=== PATIENT | female | born 1970 | race Caucasian/White ===

== ENCOUNTER 2025-02-04 10:28 | Emergency (ER) | payer BC, SELFPAY ==
[2025-02-04 10:31] VITALS: BP 129/92
[2025-02-04] MEDS: NSS 1000 IV (11:34)
[2025-02-04] MEDS: TORADOL 15 MG IV (11:35)
[2025-02-04] MEDS: BENADRYL 50 MG IV (11:36)
[2025-02-04 11:37] LABS: % Basophils 0.5 % (0-2); % Eosinophils 2.6 % (0-6); % Immature Granulocytes 0.3 % (0-0.5); % Lymphocytes 30.5 % (20.5-51.1); % Monocytes 6.3 % (1.7-9.3); % Neutrophils 59.8 % (42.2-75.2); Absolute Basophils 0.1 10^3/uL (0-0.2); Absolute Eosinophils 0.3 10^3/uL (0-0.7); Absolute Monocytes 0.6 10^3/uL (0.1-0.6); Absolute Neutrophils 5.9 10^3/uL (1.4-6.5); Hematocrit 44.7 % (37.0-47.0); Hemoglobin 14.5 g/dL (12.0-16.0); Mean Corp Hgb Conc. 32.4 g/dL (33.0-37.0); Mean Corpuscular Hgb 26.9 pg (27.0-31.0); Mean Corpuscular Volume 82.9 fL (81.0-99.0); Mean Platelet Volume 9.3 fL (7.4-10.4); Nucleated Red Blood Cells % 0 %; Platelet Count 384 10^3/uL (130-400); Red Blood Cell Count 5.39 10^6/uL (4.20-5.40); Red Cell Dist. Width 14.6 % (11.5-14.5); White Blood Cell Count 9.8 10^3/uL (4.8-10.8)
[2025-02-04] MEDS: DECADRON 10 MG IV (11:39)
[2025-02-04] MEDS: REGLAN 10 MG IV (11:41)
[2025-02-04 11:53] LABS: Blood Urea Nitrogen 30 mg/dl (7-17); Calcium 10.1 mg/dl (8.4-10.2); Carbon Dioxide 34 mmol/L (22-30); Chloride 98 mmol/L (98-107); Glucose 143 mg/dl (70-99); Sodium 141 mmol/L (135-145); eGFR 54.13
--- NOTE | 2025-02-04 12:06 | ED.GENMED ---
History of Present Illness
General
Chief Complaint: Headache
Source: patient
Exam Limitations: none
Time Seen by Provider: 02/04/25 11:00
Nursing documentation reviewed up to this point in time: agreed with
History of Present Illness
History of Present Illness:
54-year-old female past with history of fibromyalgia, previous PE factor V Leiden presenting to the emergency department today with concerns of a migraine over the past week. Initially felt similar to previous migraines but has been ongoing despite
typical medications at home. Ongoing for the last week. Described as a throbbing diffuse headache. Denies numbness weakness changes in vision. Able to walk well. No neck pain no fevers.
Past History
Past History
ED Past Medical History: Other (Migraine HAs, fibromyalgia, frequent UTIs, factor V Leiden deficiency)
ED Past Surgical History: Cholecystectomy
Social History
Tobacco: Non-smoker
Alcohol: None
Drug: None
Personal:
Living: with family
Employment: Employed
Family History
Family History: Other (No significant)
Review of Systems
Review of Systems
Allergies reviewed?: Yes
All Other Systems: ROS reviewed and negative except as documented in HPI and ROS
Phy Exam
Physical Exam
Physical Exam:
GENERAL: Alert , in no apparent distress
EYE: pupils equal and reactive
NECK: Supple, no significant adenopathy.
ENT: o/p clr, mmm.
CARDIAC: Regular rate and rhythm .
LUNGS: Clear breath sounds bilaterally, no acute respiratory distress, no wheezes/rales/rhonchi
ABDOMEN: Soft, without focal tenderness, no r/g, no cvat
NEUROLOGICAL: Alert and oriented, no focal neuro deficits
SKIN: Warm and dry, skin intact.
MUSCULOSKELETAL: No edema, well perfused.
PSYCH: Normal and appropriate interaction.
Course
Orders/Labs/Results
Orders:
Orders
02/04/25 11:13
CT Head W/o Iv Contrast Urgent
Comment:
Reason For Exam: progressive 1 week KNAPP
0.9% Sodium Chloride 1000 ml [Nss] 1,000 ml IV BOLUS
Dexamethasone Sod Phosphate [Decadron] 10 mg IV NOW STA
Diphenhydramine [Benadryl] 50 mg IV NOW STA
Ketorolac [Toradol] 15 mg IV NOW STA
Metoclopramide [Reglan] 10 mg IV NOW STA
02/04/25 11:29
Basic Metabolic Panel Urgent
Complete Blood Count/With Diff Urgent
Abnormal Lab Results
02/04/25
11:29
MCH 26.9 L pg
(27.0-31.0)
MCHC 32.4 L g/dL
(33.0-37.0)
RDW 14.6 H %
(11.5-14.5)
Carbon Dioxide 34 H mmol/L
(22-30)
BUN 30 H mg/dl
(7-17)
Creatinine 1.2 H mg/dL
(0.6-1.0)
Glucose 143 H mg/dl
(70-99)
02/04/25 11:29
02/04/25 11:29
Vital Signs
Initial and Last Documented VS:
Initial Vital Signs
Temp Pulse Resp BP Pulse Ox
98.6 F 87 16 129/92 97
02/04/25 10:31 02/04/25 10:31 02/04/25 10:31 02/04/25 10:31 02/04/25 10:31
Last Documented Vital Signs
Temp Pulse Resp BP Pulse Ox
98.6 F 87 20 129/92 97
02/04/25 10:31 02/04/25 10:31 02/04/25 12:35 02/04/25 10:31 02/04/25 10:31
MDM/Problems Addressed
MDM/Problems Addressed:
54-year-old female presenting to the emergency department today with concerns of headache over the past week has had some nausea and vomiting. On arrival vital signs are normal patient no distress does feel similar to previous migraines but has
been ongoing for a week which is atypical. Neurologic examination normal here patient no obvious distress. Labs showing elevated creatinine level and BUN which is consistent with her decreased oral intake. Was given a liter of fluids. Head CT
without emergent findings. Patient reassessed with complete resolution of symptoms. Patient well-appearing no distress stable for outpatient management. No evidence of life-threatening cause of headache at this time.
*Critical Care Note
Total Time (30-74mins, 75-104mins- exclusive of procedures): Not Applicable
ED Attending Note
-
Portions of this chart may have been created with voice recognition software.� Occasional wrong word or��sound alike� substitutions may have occurred due to the inherent limitations of voice recognition software.
Discharge Plan
Departure
Patient Disposition: Home (Routine Discharge)
Date of Disposition: 02/04/25
Time of Disposition: 13:23
Patient with high blood pressure during this ER visit?: No
Condition: Good
Covid-19: Not Applicable
Discharge Problem:
Migraine
Instructions: Migraines (DC)
Prescriptions:
No Action
furosemide 40 mg Tablet
40 mg PO DAILY
omeprazole 40 mg Capsule,Delayed Release(Dr/Ec)
40 mg PO DAILY
glimepiride 1 mg Tablet
1 mg PO DAILY
modafinil 200 mg Tablet
200 mg PO DAILY
metformin 1,000 mg Tablet
1,000 mg PO BID
rosuvastatin 20 mg Tablet
20 mg PO DAILY
cholecalciferol (vitamin D3) 125 mcg (5,000 unit) Tablet
125 mcg PO DAILY
Eliquis 2.5 mg Tablet
2.5 mg PO BID
hydroxyzine HCl 50 mg Tablet
50 mg PO Q8H
escitalopram oxalate 20 mg Tablet
20 mg PO HS
bupropion HCl 300 mg Tablet Extended Release 24 Hr
300 mg PO DAILY
quetiapine 150 mg Tablet
150 mg PO HS
cranberry extract [Ellura] 200 mg Capsule
36 mg PO DAILY
cyclobenzaprine 10 mg Tablet
10 mg PO HS
ondansetron HCl 4 mg Tablet
4 mg PO TID
prochlorperazine maleate [Compazine] 10 mg Tablet
10 mg PO Q8H PRN (Reason: nausea)
doxepin 10 mg Capsule
20 mg PO HS
zolmitriptan [Zomig] 5 mg Tablet
5 mg PO BIDPRN PRN (Reason: migraines)
zblodbsroa-zpikbjgwhjfis-cvwi 50-325-40 mg Tablet
2 tab PO Q6H PRN (Reason: migraines)
albuterol sulfate 90 mcg/actuation Hfa Aerosol Inhaler
2 puff INHALATION R Q4HPRN PRN (Reason: sob)
zolmitriptan [Zomig] 5 mg [place],Non-Aerosol
1 spray INTRANASAL DAILYPRN PRN (Reason: migraines)
biotin 10,000 mcg Tablet,Disintegrating
10,000 mcg PO DAILY
cephalexin 500 mg tablet
500 mg PO Q6H Qty: 46 0RF
oxycodone-acetaminophen 10-325 mg tablet
1 tab PO Q6H PRN (Reason: migraines) Qty: 20 0RF
Referrals:
Julius Sutton MD [Family Provider] -
Activity Restrictions/Additional Instructions:
You came to the emergency department today with concerns of headache. Here you had a reassuring assessment. This is likely from a migraine. Please have close with your neurologist. Return for any worsening, new or concerning symptoms.
Interventions
Interventions:
*Risk Screen - Suicide Last Done: 02/04/25 12:35
*General Assessment Last Done: 02/04/25 12:35
*Neglect/Abuse Screening Last Done: 02/04/25 12:35
*ED- Fall Risk Assessment Last Done: 02/04/25 12:35
*ED COVID-19 Vaccine History Last Done: 02/04/25 12:36
ED- Neurological Assessment Last Done: 02/04/25 12:35
Discharge Date and Time
Print Language: CYMRO
[2025-02-04 13:32] VITALS: BP 131/70
== END 2025-02-04 13:33 | disposition home or self-care (01) ==
LOC: EMR 10:28
PROVIDERS: Physician Assistant; EMERGENCY PHYSICIAN Emergency Medicine; FAMILY PHYSICIAN Family Medicine
DX: G43.909 Migraine, unspecified, not intractable, without status migrainosus (principal); R11.10 Vomiting, unspecified; M79.7 Fibromyalgia; D68.51 Activated protein C resistance; M19.90 Unspecified osteoarthritis, unspecified site; F41.9 Anxiety disorder, unspecified; R73.03 Prediabetes; Z90.49 Acquired absence of other specified parts of digestive tract; Z87.440 Personal history of urinary (tract) infections; Z86.711 Personal history of pulmonary embolism; Z79.01 Long term (current) use of anticoagulants; Z88.5 Allergy status to narcotic agent; Z91.013 Allergy to seafood; Z88.8 Allergy status to other drugs, medicaments and biological substances; Z91.018 Allergy to other foods
CPT/HCPCS: 99284; 96374; 96375 ×3; 96361; 70450; 80048; 85025

== ENCOUNTER 2025-02-13 11:47 | Emergency (ER) | payer BC, SELFPAY ==
[2025-02-13] VITALS (7 sets, daily range): BP systolic 108–127; BP diastolic 71–83; BMI 27.3
[2025-02-13 12:08] LABS: % Basophils 0.4 % (0-2); % Eosinophils 2.3 % (0-6); % Immature Granulocytes 0.2 % (0-0.5); % Lymphocytes 29.8 % (20.5-51.1); % Monocytes 8.5 % (1.7-9.3); % Neutrophils 58.8 % (42.2-75.2); Absolute Eosinophils 0.3 10^3/uL (0-0.7); Absolute Lymphocytes 3.2 10^3/uL (1.2-3.4); Absolute Monocytes 0.9 10^3/uL (0.1-0.6); Absolute Neutrophils 6.3 10^3/uL (1.4-6.5); Hematocrit 44.3 % (37.0-47.0); Hemoglobin 14.5 g/dL (12.0-16.0); Mean Corp Hgb Conc. 32.7 g/dL (33.0-37.0); Mean Corpuscular Volume 82.3 fL (81.0-99.0); Mean Platelet Volume 9.6 fL (7.4-10.4); Nucleated Red Blood Cells % 0 %; Platelet Count 401 10^3/uL (130-400); Red Blood Cell Count 5.38 10^6/uL (4.20-5.40); Red Cell Dist. Width 14.2 % (11.5-14.5); White Blood Cell Count 10.8 10^3/uL (4.8-10.8)
[2025-02-13 12:37] LABS: ALT (SGPT) 26 U/L (0-35); AST (SGOT) 21 U/L (14-36); Albumin 4.9 g/dl (3.5-5.0); Alkaline Phosphatase 108 U/L (38-126); Blood Urea Nitrogen 27 mg/dl (7-17); Calcium 9.7 mg/dl (8.4-10.2); Carbon Dioxide 26 mmol/L (22-30); Chloride 98 mmol/L (98-107); Glucose 114 mg/dl (70-99); Lipase 187 U/L (23-300); Potassium 3.2 mmol/L (3.5-5.1); Sodium 143 mmol/L (135-145); Total Bilirubin 0.4 mg/dl (0.2-1.3); Total Protein 7.6 g/dl (6.3-8.2); eGFR 49.17
--- NOTE | 2025-02-13 15:52 | ED.GENMED ---
History of Present Illness
<Kenrick Avilez DO - Last Filed: 02/13/25 15:58>
General
Chief Complaint: Visual Problem
Source: patient
Exam Limitations: none
Time Seen by Provider: 02/13/25 13:06
History of Present Illness
History of Present Illness:
54-year-old female who presents after she developed vision changes starting yesterday. Patient states she has had a migraine for some time but got treated last week and felt better from a migraine perspective. However, she has been vomiting. Has
been on Mounjaro for about 3 weeks. Patient states that she sees essentially double vision when both of her eyes are open. She denies headache. No neck pain. Patient denies fevers.
Past History
<Kenrick Avilez DO - Last Filed: 02/13/25 15:58>
Past History
ED Past Medical History: Other (Migraine HAs, fibromyalgia, frequent UTIs, factor V Leiden deficiency)
ED Past Surgical History: Cholecystectomy
Social History
Tobacco: Non-smoker
Alcohol: None
Drug: None
Personal:
Living: with family
Employment: Employed
Family History
Family History: Other (No significant)
Phy Exam
<Kenrick Avilez DO - Last Filed: 02/13/25 15:58>
Physical Exam
Physical Exam:
CONSTITUTIONAL Patient alert and oriented to person, place and time. Well-appearing. Vital signs reviewed.
HEAD atraumatic, normocephalic.
EYES eyelids normal to inspection, Conjunctiva normal, Sclera normal.
NECK normal range of motion, Trachea midline, no jugular venous distention.
RESPIRATORY CHEST No respiratory distress noted, Chest expansion equal, Bilateral breath sounds clear.
CARDIOVASCULAR regular rate and rhythm, Heart sounds normal.
ABDOMEN abdomen nontender, Bowel sounds normal. No distention.
BACK normal inspection, no obvious deformities
UPPER EXTREMITY range of motion normal, Motor strength normal, no cyanosis, no edema.
LOWER EXTREMITY range of motion normal, Motor strength normal, no cyanosis, no edema.
NEURO Speech normal, No focal motor deficits, [place] coma scale 15, Memory normal, Cranial Nerves intact to screening exam. No pronator drift. Normal bzaqfd-kc-ffos bilaterally. There is a disconjugate gaze noted. Unclear exactly the
dysfunction but appears to have difficulty in new superior motion of the right eye.
SKIN skin warm, dry, and normal in color.
Course
<Kenrick Avilez, DO - Last Filed: 02/13/25 15:58>
Orders/Labs/Results
Orders:
Orders
02/13/25 12:01
Complete Blood Count/With Diff Urgent
Comprehensive Metabolic Panel Urgent
Lipase Urgent
02/13/25 13:54
CT Head & Neck Angio W/wo IV Urgent
Comment:
Reason For Exam: vomiting, now disconjugate gaze
02/13/25 17:48
Prednisone [Deltasone] 50 mg PO NOW STA
Abnormal Lab Results
02/13/25
12:01
MCHC 32.7 L g/dL
(33.0-37.0)
Plt Count 401 H 10^3/uL
(130-400)
Absolute Monos (auto) 0.9 H 10^3/uL
(0.1-0.6)
Potassium 3.2 L mmol/L
(3.5-5.1)
BUN 27 H mg/dl
(7-17)
Creatinine 1.3 H mg/dL
(0.6-1.0)
Glucose 114 H mg/dl
(70-99)
02/13/25 12:01
02/13/25 12:01
Vital Signs
Initial and Last Documented VS:
Initial Vital Signs
Temp Pulse BP Pulse Ox
98.4 F 108 108/83 97
02/13/25 11:49 02/13/25 11:49 02/13/25 11:49 02/13/25 11:49
Last Documented Vital Signs
Temp Pulse BP Pulse Ox
97.9 F 108 114/71 98
02/13/25 17:20 02/13/25 11:49 02/13/25 17:20 02/13/25 17:20
<Shyam Max DO - Last Filed: 02/13/25 17:49>
Orders/Labs/Results
Orders:
Orders
02/13/25 12:01
Complete Blood Count/With Diff Urgent
Comprehensive Metabolic Panel Urgent
Lipase Urgent
02/13/25 13:54
CT Head & Neck Angio W/wo IV Urgent
Comment:
Reason For Exam: vomiting, now disconjugate gaze
02/13/25 17:48
Prednisone [Deltasone] 50 mg PO NOW STA
Abnormal Lab Results
02/13/25
12:01
MCHC 32.7 L g/dL
(33.0-37.0)
Plt Count 401 H 10^3/uL
(130-400)
Absolute Monos (auto) 0.9 H 10^3/uL
(0.1-0.6)
Potassium 3.2 L mmol/L
(3.5-5.1)
BUN 27 H mg/dl
(7-17)
Creatinine 1.3 H mg/dL
(0.6-1.0)
Glucose 114 H mg/dl
(70-99)
02/13/25 12:01
02/13/25 12:01
Vital Signs
Initial and Last Documented VS:
Initial Vital Signs
Temp Pulse BP Pulse Ox
98.4 F 108 108/83 97
02/13/25 11:49 02/13/25 11:49 02/13/25 11:49 02/13/25 11:49
Last Documented Vital Signs
Temp Pulse BP Pulse Ox
97.9 F 108 114/71 98
02/13/25 17:20 02/13/25 11:49 02/13/25 17:20 02/13/25 17:20
<Kenrick Avilez DO - Last Filed: 02/13/25 15:58>
MDM/Problems Addressed
Differential Diagnosis Includes:
Subarachnoid hemorrhage, aneurysm, CVA, hyperglycemia, electrolyte disturbance, vascular dissection
MDM/Problems Addressed:
Disconjugate gaze
<Kenrick Avilez DO - Last Filed: 02/13/25 15:58>
*Radiology
Radiology exam reviewed: preliminary read by ED provider (No obvious bleeding)
*Pulse Oximetry
Patient hypoxic: no
*Critical Care Note
Total Time (30-74mins, 75-104mins- exclusive of procedures): Not Applicable
Data Reviewed
Source: patient
<Kenrick Avilez DO - Last Filed: 02/13/25 15:58>
Patient Management
Discussion with other providers: Skin Piler (Case discussed with neurology Dr. Abreu who will evaluate the patient)
Escalation/DeEscalation of care consider admission/obs:
Does seem to have a disconjugate gaze. Neurology to evaluate. CT shows no obvious hemorrhage and radiology reads her imaging essentially negative. Dispo pending neurology evaluation
<Shyam Max DO - Last Filed: 02/13/25 17:49>
Update Note
Update Note:
Signout pending neurology evaluation and reviewed with neurology suspect 6th nerve palsy diabetic versus viral recommend discharging on prednisone 50 mg a day for 5 days
ED Attending Note
<Kenrick Avilez DO - Last Filed: 02/13/25 15:58>
-
Portions of this chart may have been created with voice recognition software.� Occasional wrong word or��sound alike� substitutions may have occurred due to the inherent limitations of voice recognition software.
Discharge Plan
Departure
Patient Disposition: Home (Routine Discharge)
Date of Disposition: 02/13/25
Time of Disposition: 17:48
Patient with high blood pressure during this ER visit?: No
Condition: Good
Discharge Problem:
Double vision
Instructions: Double Vision (DC)
Prescriptions:
New
prednisone 50 mg tablet
50 mg PO DAILY Qty: 4 0RF
No Action
furosemide 40 mg Tablet
40 mg PO DAILY
omeprazole 40 mg Capsule,Delayed Release(Dr/Ec)
40 mg PO DAILY
glimepiride 1 mg Tablet
1 mg PO DAILY
modafinil 200 mg Tablet
200 mg PO DAILY
metformin 1,000 mg Tablet
1,000 mg PO BID
rosuvastatin 20 mg Tablet
20 mg PO DAILY
cholecalciferol (vitamin D3) 125 mcg (5,000 unit) Tablet
125 mcg PO DAILY
Eliquis 2.5 mg Tablet
2.5 mg PO BID
hydroxyzine HCl 50 mg Tablet
50 mg PO Q8H
escitalopram oxalate 20 mg Tablet
20 mg PO HS
bupropion HCl 300 mg Tablet Extended Release 24 Hr
300 mg PO DAILY
quetiapine 150 mg Tablet
150 mg PO HS
cranberry extract [Ellura] 200 mg Capsule
36 mg PO DAILY
cyclobenzaprine 10 mg Tablet
10 mg PO HS
ondansetron HCl 4 mg Tablet
4 mg PO TID
prochlorperazine maleate [Compazine] 10 mg Tablet
10 mg PO Q8H PRN (Reason: nausea)
doxepin 10 mg Capsule
20 mg PO HS
zolmitriptan [Zomig] 5 mg Tablet
5 mg PO BIDPRN PRN (Reason: migraines)
viencrykav-zfundubfmeeis-vcan 50-325-40 mg Tablet
2 tab PO Q6H PRN (Reason: migraines)
albuterol sulfate 90 mcg/actuation Hfa Aerosol Inhaler
2 puff INHALATION R Q4HPRN PRN (Reason: sob)
zolmitriptan [Zomig] 5 mg [place],Non-Aerosol
1 spray INTRANASAL DAILYPRN PRN (Reason: migraines)
biotin 10,000 mcg Tablet,Disintegrating
10,000 mcg PO DAILY
cephalexin 500 mg tablet
500 mg PO Q6H Qty: 46 0RF
oxycodone-acetaminophen 10-325 mg tablet
1 tab PO Q6H PRN (Reason: migraines) Qty: 20 0RF
Referrals:
Julius Sutton MD [Family Provider, Family Practice]
Interventions
Interventions:
*Risk Screen - Suicide Last Done: 02/13/25 11:49
*General Assessment Last Done: 02/13/25 11:49
*Neglect/Abuse Screening Last Done: 02/13/25 11:49
*ED- Fall Risk Assessment Last Done: 02/13/25 11:49
*ED COVID-19 Vaccine History Last Done: 02/13/25 11:49
ED- Neurological Assessment Last Done: 02/13/25 13:24
ED-EENT Assessment Last Done: 02/13/25 13:24
ED Swallowing Screen Last Done: 02/13/25 13:24
Discharge Date and Time
Print Language: CHINESE
--- NOTE | 2025-02-13 17:26 | CON.NEURO ---
Neuro Assessment/Plan
Assessment
isolated left 6 nerve palsy
careful exam shows no long tract signs to suggest stroke
no need for MRI
causes diabetic or viral; rx prednisone 50 x5 days, 5 days of high sugars won't cause lasting damage may help if viral
CTA showing mild left carotid plaque, continue rosuvastatin, incidental thyroid nodules outpatient ultrasound
above discussed with patient
Consultation
Order
Date of Consultation: 02/13/25
Requesting Provider: Kenrick Avilez
Reason for Consult: double vision
Subjective/Objective
Subjective Data
Date of Service: February 13, 2025
from ED notes:
54-year-old female who presents after she developed vision changes starting yesterday. Patient states she has had a migraine for some time but got treated last week and felt better from a migraine perspective. However, she has been vomiting. Has
been on Mounjaro for about 3 weeks. Patient states that she sees essentially double vision when both of her eyes are open. She denies headache. No neck pain. Patient denies fevers.
she reports the double vision is binocular, images are side by side, align with right gaze
Objective Data
Vital Signs
Temp Pulse BP Pulse Ox
36.9 C 108 108/75 99
02/13/25 11:49 02/13/25 11:49 02/13/25 16:00 02/13/25 16:01
Lab Results
02/13/25 12:01
02/13/25 12:01
Sodium 143 mmol/L (135-145) 02/13/25 12:01
Potassium 3.2 mmol/L (3.5-5.1) L 02/13/25 12:01
BUN 27 mg/dl (7-17) H 02/13/25 12:01
Glucose 114 mg/dl (70-99) H 02/13/25 12:01
Calcium 9.7 mg/dl (8.4-10.2) 02/13/25 12:01
Patient Allergies
aspartame (From Nutrasweet Aspartame) Allergy (Verified 02/13/25 11:49)
MIGRAINE TRIGGER
caffeine Allergy (Verified 02/13/25 11:49)
MIGRAINE TRIGGER
codeine Allergy (Verified 02/13/25 11:49)
VOMITING
monosodium glutamate Allergy (Verified 02/13/25 11:49)
MIGRAINE TRIGGER
Nitrate Analogues Allergy (Verified 02/13/25 11:49)
MIGRAINE TRIGGER
pollen extracts Allergy (Verified 02/13/25 11:49)
SNEEZING
shrimp Allergy (Verified 02/13/25 11:49)
Swelling
sumatriptan (From Imitrex) Allergy (Verified 02/13/25 11:49)
Vomiting
sumatriptan succinate (From Imitrex) Allergy (Verified 02/13/25 11:49)
Vomiting
Physical Exam
-
AAOx3, speech clear, language intact
VFF, EOMI, face symmetric
full strength b/l UE/LE, no pronator drift, no fixation
sensation intact touch/pin/temp, vibration symmetric side to side
DTR normal/symmetric
Medications
-
Home Medications
�Medication �Instructions �Recorded
albuterol sulfate 90 mcg/actuation 2 puff inhalation R Q4HPRN PRN sob 03/31/23
aerosol inhaler
apixaban 2.5 mg tablet (Eliquis) 2.5 mg PO BID Blood Clot 03/31/23
Prevention/Tx
biotin 10,000 mcg disintegrating 10,000 mcg PO DAILY Supplement 03/31/23
tablet
bupropion HCl 300 mg 24 hr tablet, 300 mg PO DAILY Mental Health 03/31/23
extended release
scbkuedbxk-piolhexhxiohx-utquvacy 2 tab PO Q6H PRN migraines 03/31/23
50 mg-325 mg-40 mg tablet
cholecalciferol (vitamin D3) 125 125 mcg PO DAILY Supplement 03/31/23
mcg (5,000 unit) tablet
cranberry extract 200 mg capsule 36 mg PO DAILY Supplement 03/31/23
(Ellura)
cyclobenzaprine 10 mg tablet 10 mg PO HS Muscle Spasms 03/31/23
doxepin 10 mg capsule 20 mg PO HS Mental Health 03/31/23
escitalopram oxalate 20 mg tablet 20 mg PO HS Mental Health 03/31/23
furosemide 40 mg tablet 40 mg PO DAILY Fluid 03/31/23
Retention/Swelling
glimepiride 1 mg tablet 1 mg PO DAILY Diabetes 03/31/23
hydroxyzine HCl 50 mg tablet 50 mg PO Q8H Mental Health 03/31/23
metformin 1,000 mg tablet 1,000 mg PO BID Diabetes 03/31/23
modafinil 200 mg tablet 200 mg PO DAILY Neurological 03/31/23
Condition
omeprazole 40 mg capsule,delayed 40 mg PO DAILY Gastrointestinal 03/31/23
release Issue
ondansetron HCl 4 mg tablet 4 mg PO TID nausea 03/31/23
prochlorperazine maleate 10 mg 10 mg PO Q8H PRN nausea 03/31/23
tablet (Compazine)
quetiapine 150 mg tablet 150 mg PO Mental Health 03/31/23
rosuvastatin 20 mg tablet 20 mg PO DAILY High Cholesterol 03/31/23
zolmitriptan 5 mg nasal spray 1 spray intranasal DAILYPRN PRN 03/31/23
(Zomig) migraines
zolmitriptan 5 mg tablet (Zomig) 5 mg PO BIDPRN PRN migraines 03/31/23
cephalexin 500 mg tablet 500 mg PO Q6H #46 tabs 04/03/23
oxycodone-acetaminophen 10 mg-325 1 tab PO Q6H PRN migraines #20 tabs 04/03/23
mg tablet
[2025-02-13] MEDS: DELTASONE 50 MG PO (18:04)
== END 2025-02-13 18:07 | disposition home or self-care (01) ==
LOC: EMR 11:47
PROVIDERS: Emergency Medicine; EMERGENCY PHYSICIAN Emergency Medicine; FAMILY PHYSICIAN Family Medicine; OTHER PHYSICIAN Psychiatry & Neurology Clinical Neurophysiology
DX: H53.2 Diplopia (principal); D68.51 Activated protein C resistance; M79.7 Fibromyalgia; E11.9 Type 2 diabetes mellitus without complications; Z79.01 Long term (current) use of anticoagulants; Z79.85 Long-term (current) use of injectable non-insulin antidiabetic drugs; Z79.84 Long term (current) use of oral hypoglycemic drugs; Z79.899 Other long term (current) drug therapy
CPT/HCPCS: 99284; 70496; 70498; 80053; 83690; 85025; Q9967

== ENCOUNTER → 2025-03-11 10:59 | Outpatient (REF) | payer BC, SELFPAY | LOC: HWRAD 10:59 | PROVIDERS: ATTENDING PHYSICIAN Family Medicine | DX: E04.1 Nontoxic single thyroid nodule (principal) | CPT/HCPCS: 76536 ==

== ENCOUNTER 2025-08-22 06:26 | Day surgery (SDC) | payer BC, SELFPAY ==
[2025-08-22 10:52] LABS: Glucose - Point of Care 134 mg/dl (70-99)
== END 2025-08-22 14:02 | disposition home or self-care (01) ==
LOC: GI 06:26
PROVIDERS: ATTENDING PHYSICIAN Internal Medicine
DX: K44.9 Diaphragmatic hernia without obstruction or gangrene (principal); K22.89 Other specified disease of esophagus; K31.7 Polyp of stomach and duodenum; K31.1 Adult hypertrophic pyloric stenosis; R11.2 Nausea with vomiting, unspecified; K31.89 Other diseases of stomach and duodenum
CPT/HCPCS: 43239; 82962; 88305; 88342

== ENCOUNTER → 2025-08-26 14:11 | Outpatient (REF) | payer BC, SELFPAY | LOC: WDC 14:11 | PROVIDERS: ATTENDING PHYSICIAN Student in an Organized Health Care Education/Training Program; FAMILY PHYSICIAN Family Medicine | DX: Z12.31 Encounter for screening mammogram for malignant neoplasm of breast (principal) | CPT/HCPCS: 77063; 77067 ==